=== PATIENT | female | born 1950 | race Caucasian/White ===

== ENCOUNTER 2021-01-21 21:19 | Emergency (ER) | payer MEDICARE, BC ==
[2021-01-21] MEDS ORDERED: Lidocaine 2% 20 ML MDV INFILT ONE (21:20)
[2021-01-21 21:31] VITALS: BP 151/76; PULSE 84
[2021-01-21] MEDS ORDERED: Lidocaine/EPINEPHrine/Tetracaine Soln 5 ML Each TOP ONE (21:39)
[2021-01-21] MEDS ORDERED: Diphtheria,Pertussis(Acell),Tetanus Vaccine 0.5 ML Syringe IM ONE (22:58)
--- NOTE | 2021-01-21 23:01 | EDM.PDOC ---
ED HPI GENERAL MEDICAL PROBLEM - General Chief Complaint: Laceration Stated Complaint: LACERATION Time Seen by Provider: 01/21/21 21:30 Source of Information: Reports: Patient History Limitations: Reports: No Limitations - History of Present Illness INITIAL COMMENTS - FREE TEXT/NARRATIVE: Patient presented to the ED because of a right hand laceration. She was working with her kettles when a piece of metal fell on the palm of her right hand and sustained a 3 cm laceration. She is able to flex and extend her fingers without any difficulty. - Related Data Allergies Allergy/AdvReac Type Severity Reaction Status Date / Time bee venom protein (honey bee) Allergy Anaphylactic Verified 01/21/21 21:27 Shock Home Meds: Home Meds Calcium Carbonate/Vitamin D3 [Calcium 500-Vit D3 200 Caplet] 1 ea PO DAILY 10/29/15 [History] Lisinopril/Hydrochlorothiazide [Lisinopril-Hctz 10-12.5 mg Tab] 1 tab PO DAILY 01/21/21 [History] Past Medical History HEENT History: Reports: Hard of Hearing, Impaired Vision Cardiovascular History: Reports: Hypertension Gastrointestinal History: Reports: Colon Polyp Other Gastrointestinal History: COLON CA Neurological History: Reports: Neuropathy, Peripheral, Vertigo Endocrine/Metabolic History: Reports: Diabetes, Type II, Hypothyroidism Oncologic (Cancer) History: - Past Surgical History HEENT Surgical History: Reports: Tonsillectomy GI Surgical History: Reports: Colonoscopy, EGD Social & Family History - Tobacco Use Tobacco Use Status *Q: Never Tobacco User - Caffeine Use Caffeine Use: Reports: Coffee - Recreational Drug Use Recreational Drug Use: No ED ROS GENERAL - Review of Systems Review Of Systems: See Below Constitutional: Reports: No Symptoms Respiratory: Reports: No Symptoms Cardiovascular: Reports: No Symptoms Endocrine: Reports: No Symptoms GI/Abdominal: Reports: No Symptoms : Reports: No Symptoms Musculoskeletal: Reports: No Symptoms Skin: Reports: Wound Neurological: Reports: No Symptoms Psychiatric: Reports: No Symptoms Hematologic/Lymphatic: Reports: No Symptoms ED EXAM, SKIN/RASH Exam: See Below Exam Limited By: No Limitations General Appearance: Alert, No Apparent Distress Eye Exam: Bilateral Eye: PERRL Ears: Normal External Exam, Normal Canal Nose: Normal Inspection, Normal Mucosa Throat/Mouth: Normal Inspection, Normal Lips, Normal Teeth Head: Atraumatic, Normocephalic Neck: Normal Inspection, Supple, Non-Tender, Full Range of Motion Respiratory/Chest: No Respiratory Distress, Lungs Clear, Normal Breath Sounds, No Accessory Muscle Use, Chest Non-Tender Cardiovascular: Normal Peripheral Pulses, Regular Rate, Rhythm, No Edema, No Gallop, No JVD, No Murmur, No Rub GI/Abdominal: Normal Bowel Sounds, Soft, Non-Tender, No Organomegaly, No Distention, No Abnormal Bruit, No Mass Back Exam: Normal Inspection, Full Range of Motion Extremities: Normal Inspection, Normal Range of Motion, Non-Tender, No Pedal Edema Neurological: Alert, Oriented, CN II-XII Intact, Normal Cognition Psychiatric: Normal Affect, Normal Mood Skin: Warm ED SKIN PROCEDURES - Laceration/Wound Repair Right Hand Appearance: Superficial, Clean Distal NVT: Neuro & Vascular Intact Anesthetic Type: Local Local Anesthesia - Lidocaine (Xylocaine): 2% Plain Local Anesthetic Volume: 2cc Skin Prep: Chlorhexidine (Hibiciens) Closed with: Sutures Lac/Wound length In cm: 3 Suture Size: 3-0 # of Sutures: 6 Suture Type: Silk Course - Vital Signs Text/Narrative:: Tdap Last Recorded V/S: Last Vital Signs Temp 37.2 C 01/21/21 21:28 Pulse 84 01/21/21 21:28 Resp 18 01/21/21 21:28 BP 151/76 H 01/21/21 21:28 Pulse Ox 95 01/21/21 21:28 - Orders/Labs/Meds Meds: Medications Discontinued Medications Generic Name Dose Route Start Last Admin Trade Name Ticoq PRN Reason Stop Dose Admin Diphtheria/Tetanus/Acell Pertussis 0.5 ml 01/21/21 22:58 01/21/21 23:01 Diphtheria,Pertussis(Acell),Tetanus Vaccine 0.5 Ml Syringe IM 01/21/21 22:59 0.5 ml .ONCE ONE Administration Lidocaine/Tetracaine 5 ml 01/21/21 21:39 01/21/21 21:41 Lidocaine/Epinephrine/Tetracaine Soln 5 Ml Each TOP 01/21/21 21:40 5 ml ONETIME ONE Administration Departure - Departure Time of Disposition: 23:00 Disposition: Home, Self-Care 01 Condition: Good Clinical Impression: Hand laceration - Discharge Information Instructions: Laceration Care, Adult Referrals: Jamie Florez MD [Primary Care Provider] - Forms: ED Department Discharge Additional Instructions: Please read discharge instructions on laceration No need to apply an antibiotic ointment Keep your wound dry and clean. Do not cover your wound when you are inside the house to air dry it Check for signs of infection: redness that is moving outwards from the wound,pus discharge, swelling and increasing pain. Removal of stitches i 10 days Sepsis Event Note (ED) - Evaluation Sepsis Screening Result: No Definite Risk - Focused Exam Vital Signs: Vital Signs Temp Pulse Resp BP Pulse Ox 01/21/21 21:28 37.2 C 84 18 151/76 H 95
== END 2021-01-21 23:12 | disposition home or self-care (01) ==
LOC: FB.ED 21:19
DX: S61.411A Laceration without foreign body of right hand, initial encounter (principal); I10 Essential (primary) hypertension; E11.42 Type 2 diabetes mellitus with diabetic polyneuropathy; Z23 Encounter for immunization; Z91.030 Bee allergy status; Z79.899 Other long term (current) drug therapy; W20.8XXA Other cause of strike by thrown, projected or falling object, initial encounter
CPT/HCPCS: 12002; 90471; 90715; 99282; A9270